=== PATIENT | male | born 1970 | race Two or more races ===

== ENCOUNTER → 2019-07-16 | Outpatient (CLI) | payer OTHER ==
--- NOTE | 2019-07-16 16:54 | RADIOLOGY REPORT (SQ) ---
EXAM DESCRIPTION: MRI CERVICAL SPINE WITHOUT COMPLETED DATE/TIME: 07/16/2019 12:30 pm REASON FOR STUDY: NUMBNESS 4 5 DIGIT R HAND COMPARISON: None. TECHNIQUE: Sagittal and Axial imaging includes T1, T2, STIR and gradient echo sequences. LIMITATIONS: None. FINDINGS: ALIGNMENT: Normal. VERTEBRAE: Intact. BONE MARROW: Normal. No marrow replacement or reactive changes. DISCS: Diffuse decreased T2 weighted intervertebral disc signal. Disc space loss of height at C4-5, C5-6, and C6-7 HARDWARE: None in the spine. CORD AND BASE OF BRAIN: Normal in size and signal intensity. SOFT TISSUES: No soft tissue masses. C1-C2: No significant spinal stenosis. C2-C3: No significant spinal stenosis or exit foraminal stenosis. C3-C4: Mild diffuse posterior disc bulge and bony spurring partially effaces the ventral thecal sac a nd abuts the ventral cord without cord flattening or abnormal intrinsic cord signal. Borderline cent ral canal narrowing. Mild right foraminal narrowing. No significant left foraminal narrowing. C4-C5: Broad diffuse posterior disc bulge and bony spurring partially effaces the ventral thecal sac without cord flattening or abnormal intrinsic cord signal. No central stenosis. Moderate to high-gr joana bilateral foraminal narrowing from facet and uncovertebral hypertrophy C5-C6: Mild posterior disc bulge and bony spurring partially effaces the ventral thecal sac without c ord flattening or abnormal intrinsic cord signal. No significant central stenosis. Mild bilateral f oraminal narrowing C6-C7: Mild diffuse posterior disc bulging partially effaces the ventral thecal sac without cord flat tening or abnormal intrinsic cord signal. Borderline central canal narrowing. Mild bilateral forami nal narrowing from facet and uncovertebral hypertrophy. C7-T1: Mild bilateral foraminal narrowing from facet hypertrophy. No central stenosis UPPER THORACIC: Incompletely imaged. No significant spinal stenosis or exit foraminal stenosis. OTHER: No other significant finding. IMPRESSION: Mild diffuse degenerative disc changes as above TECHNICAL DOCUMENTATION: JOB ID: [id number] [employer]- All Rights Reserved Reading location - IP/workstation name: [email or web address]
== END ==
LOC: RAD 07-05 10:15
PROVIDERS: ATTEND Physician Assistant Medical
DX: M50.323 Other cervical disc degeneration at C6-C7 level (principal); R20.0 Anesthesia of skin
CPT/HCPCS: 72141